=== PATIENT | male | born 1955 | race Caucasian/White ===

== ENCOUNTER → 2018-08-21 | Outpatient (CLI) | payer BC ==
[~2018-08-21] MED LIST: REGADENOSON 0.4 MG/5 ML DISP.SYRIN. IV ONE
--- NOTE | 2018-08-21 10:39 | PCVCIMAG ---
APPROVED REPORT Study performed: 08/21/2018 09:03:51 EXAM: Comprehensive 2D, Doppler, and color-flow Echocardiogram Patient Location: Echo lab Room #: 2Status: routine BSA: 1.94 HR: 62 bpmBP: 164/92 mmHg Rhythm: NSR Other Information Study Quality: Good Risk Factors: Cardiac Risk Factors: HTN, Smoking Indications Hypertension/HDD PAD w stents 2D Dimensions IVSd: 10.22 (7-11mm)LVOT Diam: 22.08 (18-24mm) LVDd: 57.51 mm PWd: 7.63 (7-11mm)Ascending Ao: 33.21 (22-36mm) LVDs: 31.20 (25-40mm) Left Atrium: 32.18 (27-40mm) Aortic Root: 26.95 mm LV Single Plane 4CH: 62.96 % LV Single Plane 2CH: 65.96 % Biplane EF: 64.4 % Volumes Left Atrial Volume (Systole) Single Plane 4CH: 55.98 mLSingle Plane 2CH: 67.37 mL Biplane LA Volume: 63.00 mLLA ESV Index: 33.00 mL/m2 Aortic Valve AoV Peak Iraj.: 1.84 m/s AO Peak Gr.: 13.52 mmHgLVOT Max P.03 mmHg LVOT Max V: 1.23 m/s JOYCELYN Vmax: 2.56 cm2 Mitral Valve E/A Ratio: 1.1 MV Decel. Time: 352.92 ms MV E Max Iraj.: 0.62 m/s MV A Iraj.: 0.57 m/s IVRT: 83.04 ms TDI E/Lateral E': 8.86E/Medial E': 10.33 Medial E' Iraj.: 0.06 m/s Lateral E' Iraj.: 0.07 m/s Pulmonary Valve PV Peak Iraj.: 1.24 m/sPV Peak Gr.: 6.14 mmHg Pulmonary Vein P Vein S: 0.76 m/sP Vein A: 0.31 m/s P Vein D: 0.51 m/sP Vein A Dur.: 83.0 msec P Vein S/D Ratio: 1.49 Tricuspid Valve TR Peak Iraj.: 2.83 m/s TR Peak Gr.: 32.13 mmHg TV Vmax: 0.98 m/sPA Pressure: 39.00 mmHg Left Ventricle Left ventricle is borderline dilated. There is normal LV segmental wall motion. There is normal left ventricular wall thickness. Left ventricular systolic function is normal. The left ventricular ejection fraction is within the normal range. LVEF is 65-70%. Mild diastolic dysfunction is present (impaired relaxation pattern). Right Ventricle The right ventricle is normal size. The right ventricular systolic function is normal. Atria The left atrium size is normal. The right atrium size is normal. Aortic Valve Aortic valve is trileaflet. The aortic valve is normal in structure and function. No aortic regurgitation is present. There is no aortic valvular stenosis. Mitral Valve The mitral valve is normal in structure. There is no mitral valve regurgitation noted. No evidence of mitral valve stenosis. Tricuspid Valve The tricuspid valve is normal in structure. Trace to mild tricuspid regurgitation with a PA pressure of 40 mmHg. Mild pulmonary hypertension. Pulmonic Valve The pulmonary valve is normal in structure. There is no pulmonic valvular regurgitation. Great Vessels The aortic root is normal in size. The ascending aorta is normal in size. Aortic arch is normal in caliber. IVC is normal in size and collapses >50% with inspiration. Pericardium There is no pericardial effusion. There is no pleural effusion. <Conclusion> Left ventricular systolic function is normal. There is normal LV segmental wall motion. LVEF is 65-70%. Mild diastolic dysfunction The aortic valve is normal in structure and function, trileaflet. The mitral valve is normal in structure. No mitral valve regurgitation Trace to mild tricuspid regurgitation with a pulmonary artery pressure of 39 mmHg. There is no pericardial effusion.
--- NOTE | 2018-08-21 14:41 | PCVCIMAG ---
APPROVED REPORT Imaging Protocol: Rest Tc-99m/Stress Tc-99m 1 day Study performed: 08/21/2018 10:04:29 Indication: Exertional Dyspnea Stress Nurse: Arabella Pickens RN, Myrna Limon RN [place] Tech:GEORGE DodsonMT Ht: 5 ft 10 in Wt: 168 lbs BSA: 1.94 m2 HR: 64 bpm BP: 162/80 mmHg BMI: 24.1 Rhythm: NSR Medical History Medical History: HTN, Hyperlipidemia, COPD, PVD, Current Smoker Medications: Plavix, Lopid, Viracept, Lisinopril, Crestor Allergies: No known drug allergies Cardiac Risk Factors: Age Pretest Chest Pain Characteristics: No chest pain Exercise History: Physically active Resting Data Rest SPECT myocardial perfusion imaging was performed in supine position 45 minutes following the intravenous injection of 9.1 mCi of Tc-99m Sestamibi. Time of rest injection: 09 Date: 08/21/2018 Administration Route: IV Administration Site: Right AC Pharmacologic Stress Pharmacologic stress test was performed by injecting Regadenoson 0.4 mg IV push over 10-15 seconds immediately followed by the intravenous injection of 33 mCi of Tc-99m Sestamibi. Time of stress injection: 1045 Date: 08/21/2018 Administration Route: IV Administration Site: Right AC Gated Stress SPECT was performed 45 minutes after stress injection. The images were gated to evaluate regional wall motion and calculate left ventricular ejection fraction. Stress Test Details Stress Test: Pharmacologic stress testing performed using 0.4 mg of regadenoson per 5 mL given IV over 10 seconds. Reason for pharmacologic stress test: physical limitation, dyspnea. HRMax Heart Rate (APMHR): 156 bpm Resting HR: 64 bpmTarget HR (85% APMHR): 132 bpm Max HR Achieved: 113 bpm % of APMHR: 72 Recovery HR: 96 bpm BP Resting BP: 162/80 mmHg Max BP: 122/72 mmHg Recovery BP: 126/75 mmHg ECG Resting ECG: Sinus Rhythm Stress ECG: Sinus Tachycardia ST Change: None Maximum ST Deviation: 0 mm Arrhythmia: None Recovery ECG: Sinus Rhythm Recovery ST Change: None Recovery ST Deviation: 0 mm Recovery Arrhythmia: None Clinical Reason for Termination: Completed protocol Stress Symptoms: Dyspnea Exercise duration: 0 min 55 sec Symptoms resolved during recovery. Stress ECG Conclusion ECG: Non-ischemic Clinical: Non-ischemic Study Quality Study: Good Study Data Post stress, the left ventricular ejection was 57%.. SSS: 1 SRS: 1 SDS: 0 TID = 1.08. Perfusion No evidence of stress induced ischemia or prior myocardial infarction. Wall Motion Normal left ventricular size and function with no regional wall motion abnormalities. Nuclear Conclusion No evidence of stress induced ischemia or prior myocardial infarction. Normal left ventricular size and function with no regional wall motion abnormalities. Post stress, the left ventricular ejection was 57%. No prior study available for comparison. Interpreted by: Nam Prakash MD Electronically Approved: 08/21/2018 14:24:33 <Conclusion> ECG: Non-ischemic Clinical: Non-ischemic
== END | disposition home or self-care (01) ==
LOC: PCVCIMAG 09:49
PROVIDERS: ATTEND Internal Medicine
DX: I10 Essential (primary) hypertension (principal); I73.9 Peripheral vascular disease, unspecified; E78.5 Hyperlipidemia, unspecified; F17.200 Nicotine dependence, unspecified, uncomplicated; I27.20 Pulmonary hypertension, unspecified; J44.9 Chronic obstructive pulmonary disease, unspecified; R06.09 Other forms of dyspnea
CPT/HCPCS: 78452; 93017; 93306; A9500; J2785

== ENCOUNTER → 2018-08-31 | Outpatient (CLI) | payer BC ==
--- NOTE | 2018-08-31 12:41 | PCVCIMAG ---
EXAM: AORTOILIAC DUPLEX INDICATION: Peripheral arterial disease FINDINGS: AORTA: Suprarenal aorta measures maximum diameter of 2.6 cm. There is not a fusiform infrarenal aortic aneurysm. The infrarenal aorta measures maximum diameter of 2.3 x 2.8 cm. No aortic stenosis. RIGHT COMMON ILIAC ARTERY: Maximum diameter is 1.1 cm. No significant stenosis. RIGHT EXTERNAL ILIAC ARTERY: 90% stenosis distally. LEFT COMMON ILIAC ARTERY: Maximum diameter is 1.2 cm. No significant stenosis. LEFT EXTERNAL ILIAC ARTERY: No significant stenosis. IMPRESSION: Ectasia infrarenal abdominal aorta distally measuring 2.8 cm. Previous right common and left iliac stents maintaining good patency. 90% stenosis distal right external iliac artery with peak systolic velocity of 675 cm/s. LOC:[id number]
--- NOTE | 2018-08-31 12:44 | PCVCIMAG ---
EXAM: BILATERAL LOWER EXTREMITY ARTERIAL DUPLEX INDICATION: Peripheral Arterial Disease. Leg pain. FINDINGS: Right Leg: Common femoral artery is patent. Occlusion throughout the mid/distal superficial femoral artery within prior stent. Popliteal artery refills. Anterior tibial, peroneal, and posterior tibial arteries are patent. Left Leg: Common femoral and profunda femoral arteries are patent. Minimal stenosis [place] proximal superficial femoral artery. Superficial femoral artery otherwise patent. Popliteal artery is patent. Anterior tibial, peroneal, and posterior tibial arteries are patent. IMPRESSION: Occlusion throughout the mid/distal right superficial femoral artery within prior stent. No flow limiting stenosis in the left lower extremity. LOC:[id number]
--- NOTE | 2018-08-31 12:55 | PCVCIMAG ---
APPROVED REPORT Indications Stenosis Risk Factors Hypertension: Hyperlipidemia PAD Doppler Spectral Velocity Analysis PSV / EDVPSV / EDV ECA (R) 106 / 15 cm/sECA (L) 108 / 13 cm/s dICA (R) 66 / 21 cm/sdICA (L) 71 / 28 cm/s James (R) 62 / 23 cm/smICA (L) 86 / 29 cm/s pICA (R) 69 / 19 cm/spICA (L) 93 / 33 cm/s Bulb (R) 72 / 19 cm/sBulb (L) 88 / 19 cm/s dCCA (R) 84 / 19 cm/sdCCA (L) 109 / 27 cm/s mCCA (R) 91 / 19 cm/smCCA (L) 129 / 27 cm/s Vert (R) 53 / 18 cm/sVert (L) 125 / 35 cm/s ICA/CCA 0.82ICA/CCA 0.85 Basic Measurements Blood Pressure: Pulses: Right Left RightLeft Brachial(Sitting) 134/95jqIm934/92mmHgTemporal Real Time B-Mode Imaging Vert. (R)AntegradeVert. (L)Antegrade Findings The right carotid bulb has mild calcified plaque. The right proximal internal carotid artery shows no significant stenosis. The right common carotid artery shows no significant stenosis. The right external carotid artery shows no significant stenosis. The left carotid bulb has moderate calcified plaque. The left proximal internal carotid artery shows <40% stenosis. The left common carotid artery shows no significant stenosis. The left external carotid artery shows no significant stenosis. Conclusion 1. Right internal carotid artery plaquing without significant stenosis 2. Left internal carotid artery stenosis (<40%) 3. Antegrade vertebral flow
== END | disposition home or self-care (01) ==
LOC: PCVCIMAG 09:26
PROVIDERS: ATTEND Internal Medicine
DX: I65.23 Occlusion and stenosis of bilateral carotid arteries (principal); I73.9 Peripheral vascular disease, unspecified; I10 Essential (primary) hypertension; E78.5 Hyperlipidemia, unspecified
CPT/HCPCS: 93880; 93925; 93978

== ENCOUNTER → 2018-09-11 | Outpatient (CLI) | payer BC ==
[~2018-09-11] MED LIST changes: +DIAZEPAM 10 MG TABLET. ONE; +EPTIFIBATIDE BOLUS 2,000 MCG/ML 10ML VIAL. IV ONE; +HEPARIN for SUB-Q USE 5,000 UNIT/ML VIAL. SQ ONE; +IODIXANOL 270 MG/ML 100 ML VIAL. ONE; +IV NORMAL SALINE 1000ML BAG 1,000 ML ONE; +LIDOCAINE 1%/EPI 1:100,000 20 ML VIAL. ONE; +MIDAZOLAM HCL/PF 2 MG/2 ML VIAL. ONE; -REGADENOSON 0.4 MG/5 ML DISP.SYRIN. IV ONE; +fentaNYL PF VIAL 100 MCG/2 ML VIAL ONE
--- NOTE | 2018-09-11 23:39 | PCVCINTER ---
EXAM: 1. AORTOGRAM AND BILATERAL LOWER EXTREMITY RUNOFF ANGIOGRAM 2. BILATERAL RENAL ANGIOGRAPHY 3. RIGHT COMMON FEMORAL ARTERY ATHERECTOMY AND DRUG COATED BALLOON ANGIOPLASTY. 4. SECONDARY THROMBECTOMY RIGHT COMMON FEMORAL ARTERY. 5. RIGHT COMMON ILIAC ARTERY ANGIOPLASTY. 6. RIGHT EXTERNAL ILIAC ARTERY ANGIOPLASTY. 7. LEFT RENAL ARTERY STENT PLACEMENT. INDICATION: Peripheral arterial disease. Coronary artery disease. Nonhealing ulcer right lower extremity. Hypertension. Renal atherosclerosis. No prior catheter based angiographic study is available. A full diagnostic angiogram study is performed today and the decision to intervene is based on this diagnostic study. PROCEDURE: Procedure and risks of angiography intervention is appropriate including limb loss stroke and were discussed with the patient's family and consent obtained. The patient's left groin was prepped in the normal sterile fashion. IV conscious sedation was used throughout procedure with appropriate monitoring from 1:00 PM through 2:30 PM. Ultrasound was used to interrogate the left groin and showed the left common femoral artery to be patent. A permanent spot film was obtained. Under ultrasound guidance access into the left common femoral artery was obtained and a 5 [place] sheath was placed. Through this a 5 [place] flush catheter was placed into the abdominal aorta at the level of the renal arteries and AP aortogram was performed. Catheter was positioned at the aortic bifurcation and both oblique views of the pelvis were obtained. Catheter was positioned into the left external iliac artery and left leg runoff angiography was performed. Catheter was exchanged for a visceral catheter was placed into the right renal arteries and right renal angiograms obtained. Catheter was placed into the the left renal arteries and left renal angiograms were obtained. Catheter was advanced to the level of the right external iliac artery and right leg runoff angiography was obtained. Patient was given 4500 units of heparin. Stent placement across the areas of high-grade stenosis in the left renal artery was carried out with a 6 x 12 [place] blue stent with subsequent dilatation to 6.0 mm. A 6 [place] crossover sheath was placed via the left groin to the level of the right external iliac artery. Atherectomy of the right upper common femoral artery was performed with 2.0 mm [employer] laser atherectomy catheter in the standard fashion. Following atherectomy small areas of thrombus were observed and because of this secondary thrombectomy throughout the right common femoral artery was carried out with mechanical suction thrombectomy catheter in the standard fashion. Minimal debris was removed. Following this drug coated balloon angioplasty of the right common femoral artery was carried out with a 6 x 80 [employer] Yolanda Jorden [employer] catheter. Angioplasty of the right common iliac artery with an 8 x 4 [employer] catheter was performed. Angioplasty of the right external iliac artery with a 8 x 4 [employer] catheter was performed. Angioplasty of the upper right common femoral artery with a 8 x 4 [employer] catheter was performed. Follow-up angiogram was performed. Catheters and wires removed. Sheath was removed and hemostasis obtained using the FISH device. No immediate complications. FINDINGS: Aortogram: There is one right and one left renal artery. Moderate plaque infrarenal abdominal aorta without significant stenosis. Pelvis: Previous stent right common and external iliac artery showing moderate restenosis. Left common iliac artery is patent. Left external iliac artery stent maintaining adequate patency. Both internal iliac arteries are occluded. 80% stenosis upper right common femoral artery. 90% stenosis origin right profunda femoral artery. Moderate diffuse plaque left common iliac artery without flow-limiting stenosis. Left profunda femoral artery is patent. Right renal artery: Minimal plaque proximal vessel does not cause significant stenosis. Left renal artery: 90% concentric stenosis proximal vessel. Right leg: Occlusion throughout the mid and distal superficial femoral artery with refilling of the upper popliteal artery. Three-vessel runoff into the foot. Dorsalis pedis is not visualized. Left le% stenosis mid [place] superficial femoral artery. 70% stenosis upper [place] popliteal artery. Lower popliteal artery is patent. Three-vessel runoff into the foot. Right common iliac artery: Following procedure as above vessel shows good patency. Right external iliac artery: Following procedure as above vessel shows good patency. Right common femoral artery: Following procedure as above upper portion of the vessel which was treated shows good patency. Left renal artery: Following procedure as above vessel shows good patency. IMPRESSION: 80% stenosis upper right common femoral artery was treated as above with good patency restored. Areas of moderate stenosis right common and external iliac artery were treated with angioplasty with satisfactory patency restored. 90% stenosis left renal artery was treated with stent placements with good patency restored. Occlusion mid/distal right superficial femoral artery with refilling of the right popliteal artery. I will follow-up with the patient in 1-2 months and if needed consideration for right common femoral artery endarterectomy and profundoplasty will be discussed. LOC:OFFICE
== END | disposition home or self-care (01) ==
LOC: PCVCINTER 10:30
PROVIDERS: ATTEND Nuclear Medicine Nuclear Cardiology
DX: I70.238 Atherosclerosis of native arteries of right leg with ulceration of other part of lower leg (principal); L97.818 Non-pressure chronic ulcer of other part of right lower leg with other specified severity; I70.292 Other atherosclerosis of native arteries of extremities, left leg; I70.1 Atherosclerosis of renal artery; I70.0 Atherosclerosis of aorta; I25.10 Atherosclerotic heart disease of native coronary artery without angina pectoris; I10 Essential (primary) hypertension
CPT/HCPCS: 36252; 37186; 37220; 37222; 37225; 37236; 75716; 76937; 99152; 99153; C1725; C1751; C1757; C1760; C1769; C1876; C1885; C1887; C1894; J0690; J1327; J1644; J2250; J3010; J3490; J7030; Q9967

== ENCOUNTER → 2018-11-01 | Outpatient (CLI) | payer BC ==
--- NOTE | 2018-11-01 19:03 | PCVCIMAG ---
EXAM: AORTOILIAC DUPLEX INDICATION: Peripheral arterial disease FINDINGS: AORTA: Suprarenal aorta measures maximum diameter of 3.0 cm. There is not a fusiform infrarenal aortic aneurysm. The infrarenal aorta measures maximum diameter of 2.8 cm. No aortic stenosis. RIGHT COMMON ILIAC ARTERY: Maximum diameter is 1.0 cm. No significant stenosis. RIGHT EXTERNAL ILIAC ARTERY: No significant stenosis. LEFT COMMON ILIAC ARTERY: Maximum diameter is 0.9 cm. No significant stenosis. LEFT EXTERNAL ILIAC ARTERY: No significant stenosis. IMPRESSION: Ectasia of the infrarenal abdominal aorta measuring maximum diameter of 2.8 cm. No significant aortoiliac stenosis. Previous site of intervention upper right common femoral artery maintaining satisfactory patency. LOC:OFFICE
--- NOTE | 2018-11-01 19:06 | PCVCIMAG ---
EXAM: NONINVASIVE ARTERIAL EXAMINATION OF BOTH LOWER EXTREMITIES INCLUDING PRE AND POST EXERCISE PRESSURE MEASUREMENTS AND DOPPLER WAVEFORMS INDICATION: Peripheral Arterial Disease. Leg pain. FINDINGS: Right Brachial: 117 mm Hg. Right Dorsalis Pedis: 66 mm Hg. Right Posterior Tibial: 76 mm Hg. Right GISELLE = 0.65. Left Brachial: 113 mm Hg. Left Dorsalis Pedis: 99 mm Hg. Left Posterior Tibial: 92 mm Hg. Left GISELLE = 0.85. Post Exercise: Right Brachial 122 mm Hg. Right Posterior Tibial: 19 mm Hg. Left Dorsalis Pedis: 87 mm Hg. Right GISELLE = 0.16. Left GISELLE = 0.71. IMPRESSION: Mild/moderate resting ischemia in the right lower extremity. Severe exercise induced ischemia in the right lower extremity. No resting ischemia in the left lower extremity. Mild exercise induced ischemia in the left lower extremity. LOC:OFFICE
== END | disposition home or self-care (01) ==
LOC: PCVCIMAG 10:17
PROVIDERS: ATTEND Nuclear Medicine Nuclear Cardiology
DX: I73.9 Peripheral vascular disease, unspecified (principal); E78.5 Hyperlipidemia, unspecified; F17.200 Nicotine dependence, unspecified, uncomplicated
CPT/HCPCS: 93924; 93978

== ENCOUNTER → 2019-05-10 | Outpatient (CLI) | payer BC ==
--- NOTE | 2019-05-10 10:05 | PCVCIMAG ---
APPROVED REPORT Study performed: 05/10/2019 08:44:47 EXAM: Comprehensive 2D, Doppler, and color-flow Echocardiogram Patient Location: Echo lab Status: routine BSA: 1.99 HR: 47 bpmBP: 128/86 mmHg Rhythm: NSR Other Information Study Quality: Adequate Risk Factors: Cardiac Risk Factors: HTN, Smoking Indications HIV, PVD, Emphysema 2D Dimensions IVSd: 13.57 (7-11mm)LVOT Diam: 22.39 (18-24mm) LVDd: 42.08 mm PWd: 9.76 (7-11mm)Ascending Ao: 35.51 (22-36mm) LVDs: 23.91 (25-40mm) Left Atrium: 37.00 (27-40mm) Aortic Root: 30.30 mm LV Single Plane 4CH: 61.91 % LV Single Plane 2CH: 56.54 % Biplane EF: 57.2 % Volumes Left Atrial Volume (Systole) Single Plane 4CH: 43.69 mLSingle Plane 2CH: 52.57 mL LA ESV Index: 26.00 mL/m2 Aortic Valve AoV Peak Iraj.: 1.67 m/s AO Peak Gr.: 11.22 mmHg Mitral Valve E/A Ratio: 1.0 MV Decel. Time: 248.66 ms MV E Max Iraj.: 0.69 m/s MV A Iraj.: 0.70 m/s IVRT: 117.65 ms TDI E/Lateral E': 6.27E/Medial E': 7.67 Medial E' Iraj.: 0.09 m/s Lateral E' Iraj.: 0.11 m/s Pulmonary Valve PV Peak Gr.: 1.97 mmHg Pulmonary Vein P Vein S: 0.52 m/sP Vein A: 0.38 m/s P Vein D: 0.33 m/sP Vein A Dur.: 86.5 msec P Vein S/D Ratio: 1.58 Tricuspid Valve TR Peak Iraj.: 2.63 m/s TR Peak Gr.: 27.74 mmHg Left Ventricle The left ventricle is normal size. There is normal LV segmental wall motion. There is normal left ventricular wall thickness. Left ventricular systolic function is normal. The left ventricular ejection fraction is within the normal range. LVEF is 60%. The left ventricular diastolic function is normal. Right Ventricle The right ventricle is normal size. The right ventricular systolic function is normal. Atria The left atrium size is normal. The right atrium size is normal. Aortic Valve The aortic valve is normal in structure. No aortic regurgitation is present. There is no aortic valvular stenosis. Mitral Valve The mitral valve is normal in structure. Trace mitral regurgitation. No evidence of mitral valve stenosis. Tricuspid Valve The tricuspid valve is normal in structure. Trace tricuspid regurgitation. Pulmonary artery pressure is 38mmHg. Pulmonic Valve The pulmonary valve is normal in structure. Trace pulmonic regurgitation. Great Vessels The aortic root is normal in size. IVC is normal in size and collapses >50% with inspiration. Pericardium There is no pericardial effusion. <Conclusion> Left ventricular systolic function is normal. There is normal LV segmental wall motion. LVEF is 60%. Normal diastolic function The aortic valve is normal in structure. No aortic regurgitation or stenosis The mitral valve is normal in structure. Trace mitral regurgitation. Trace tricuspid regurgitation. Pulmonary artery pressure of 38mmHg. There is no pericardial effusion.
--- NOTE | 2019-05-10 12:17 | PCVCIMAG ---
EXAM: NONINVASIVE ARTERIAL EXAMINATION OF BOTH LOWER EXTREMITIES INCLUDING PRE AND POST EXERCISE PRESSURE MEASUREMENTS AND DOPPLER WAVEFORMS INDICATION: Peripheral Arterial Disease. Leg pain. FINDINGS: Right Brachial: 146 mm Hg. Right Dorsalis Pedis: 89 mm Hg. Right Posterior Tibial: 101 mm Hg. Right GISELLE = 0.69. Left Brachial: 146 mm Hg. Left Dorsalis Pedis: 93 mm Hg. Left Posterior Tibial: 114 mm Hg. Left GISELLE = 0.78. Post Exercise: Left Brachial 138 mm Hg. Right Posterior Tibial: 39 mm Hg. Left Posterior Tibial: 49 mm Hg. Right GISELLE = 0.28. Left GISELLE = 0.36. IMPRESSION: Mild resting ischemia in the right lower extremity. Severe exercise induced ischemia in the right lower extremity. Mild resting ischemia in the left lower extremity. Moderately severe exercise induced ischemia in the left lower extremity. LOC:[id number]
--- NOTE | 2019-05-10 12:21 | PCVCIMAG ---
EXAM: AORTOILIAC DUPLEX INDICATION: Peripheral arterial disease FINDINGS: AORTA: Suprarenal aorta measures maximum diameter of 3.0 cm. There is not a fusiform infrarenal aortic aneurysm. The infrarenal aorta measures maximum diameter of 2.7 cm. No aortic stenosis. RIGHT COMMON ILIAC ARTERY: Maximum diameter is 1.0 cm. No significant stenosis. RIGHT EXTERNAL ILIAC ARTERY: No significant stenosis. LEFT COMMON ILIAC ARTERY: Maximum diameter is 0.9 cm. No significant stenosis. LEFT EXTERNAL ILIAC ARTERY: No significant stenosis. IMPRESSION: No abdominal aortic aneurysm. No aortoiliac stenosis seen. Previous bilateral iliac stents maintaining satisfactory patency. LOC:[id number]
== END | disposition home or self-care (01) ==
LOC: PCVCIMAG 07:56
PROVIDERS: ATTEND Nuclear Medicine Nuclear Cardiology
DX: I73.9 Peripheral vascular disease, unspecified (principal); J43.9 Emphysema, unspecified; B20 Human immunodeficiency virus [HIV] disease; E78.5 Hyperlipidemia, unspecified; M79.605 Pain in left leg; M79.604 Pain in right leg; I65.23 Occlusion and stenosis of bilateral carotid arteries; E74.39 Other disorders of intestinal carbohydrate absorption; E78.2 Mixed hyperlipidemia; I70.1 Atherosclerosis of renal artery; I77.9 Disorder of arteries and arterioles, unspecified; E78.00 Pure hypercholesterolemia, unspecified; Z79.899 Other long term (current) drug therapy; Z87.891 Personal history of nicotine dependence; Z72.89 Other problems related to lifestyle
CPT/HCPCS: 93306; 93924; 93978